=== PATIENT | female | born 1940 | race Caucasian/White ===

== ENCOUNTER → 2016-08-20 | Outpatient (CLI) | payer OTHER ==
--- NOTE | 2016-08-20 12:23 | MA ---
Screening Digital Mammogram With iCAD Analysis Clinical Indications: Routine screening. A sister was diagnosed with breast cancer in her 40s. Technique: Standard cephalocaudal projections are obtained. Digital breast tomosynthesis was performe d in the MLO projection with reconstruction at 1.0 mm slice thickness and composite MLO views reconst ructed. This examination is processed by the iCAD computer aided detection system. Comparison: August 2015, July 2014, May 2013, January 2012, December 2010, December 2009, November 2008, Ma y 2007. Breast density: Type B; Scattered fibroglandular densities. Findings: CAD was reviewed. No masses, suspicious calcifications or secondary signs of malignancy are seen. There has been no significant change in the appearance of either breast. Impression: Negative mammogram. BI-RADS 1. Recommendation: Routine mammographic screening in one year as long as physical examination is negativ murrayCount Includes [facility] will send a result letter to the patient. Negative mammography should not preclude additional workup of a clinically suspicious finding. The patient's information is entered into a reminder system with a target due date for her next mammo gram.
== END ==
LOC: FIMAGING 09:17
PROVIDERS: ATTEND Physician Assistant
DX: Z12.31 Encounter for screening mammogram for malignant neoplasm of breast (principal); Z80.3 Family history of malignant neoplasm of breast
CPT/HCPCS: G0202

== ENCOUNTER → 2016-08-20 | Outpatient (CLI) | payer OTHER ==
--- NOTE | 2016-08-20 09:22 | MR ---
MRI of the Lumbar Spine (Without Contrast) Indication: Radiculopathy. Technique: Sagittal and axial T1 and T2 , and sagittal STIR MR sequences of the lumbar spine without contrast. Axial imaging from T12-S1. Comparison: Lumbar spine radiographs dated February 09, 2008. Findings: L3 is retrolisthesed 4 mm on L4 and L4 is retrolisthesed 3 mm on L5. Lumbar spine has minim al dextrocurvature apex at L3. No bone marrow replacing lesion or compression fracture. Mild diskogen ic Modic changes are present at the L3-L4 and L4-L5 levels. The paraspinal soft tissues are normal. The aorta is normal caliber. The conus medullaris is at L1-L2. T12-L1: Widely patent central canal and neural foramina. Minimal facet hypertrophy. L1-L2: Normal disk. Widely patent central canal and neural foramina. Minimal facet hypertrophy. L2-L3: Disk desiccation and broad-based disk bulge combined with facet hypertrophy result in mild cici tral canal narrowing and minimal bilateral neural foraminal narrowing slightly worse left than right. The central canal measures 11 mm AP. L3-L4: Grade 1 retrolisthesis of L3 on L4 combined with a diffuse broad-based disk bulge, facet hyper trophy and ligamentum flavum thickening results in moderate central canal narrowing, moderate bilater al ventrolateral recess narrowing and [id number] bilateral neural foraminal stenosis, minimally worse left than right. The central canal measures 6 to 7 mm AP. L4-L5: A diffuse broad-based disk bulge combined with ligamentum flavum and facet hypertrophy results in mild to moderate central canal narrowing and ventrolateral recess stenosis worse right than left. Severe right neural foraminal stenosis compresses and minimally obscures the exiting right L4 nerve root. Mild to moderate left neural foraminal stenosis. The right L5 nerve root is minimally compresse d and deformed in the ventrolateral recess. The central canal measures 8 to 9 mm AP. L5-S1: Disk desiccation and minimal central subligamentous disk bulge result in minimal acquired cent ral canal narrowing. Facet hypertrophy and disk bulge result in mild bilateral neural foraminal steno sis. Impression: Multilevel degenerative disk and facet arthropathy with broad-based disk bulges at the L2 -L3, L3-L4, and L4-L5 levels resulting in the worst degree of central canal stenosis at L3-L4 and wor st degree of right neural foraminal stenosis at L4-L5 potentially affecting the exiting right L4 nerv e root in the neuroforamen and right L5 nerve root in the ventrolateral recess.
== END ==
LOC: FIMAGING 07:52
PROVIDERS: ATTEND Physician Assistant
DX: M51.36 Other intervertebral disc degeneration, lumbar region (principal); M46.96 Unspecified inflammatory spondylopathy, lumbar region; M48.06 Spinal stenosis, lumbar region

== ENCOUNTER → 2017-02-06 | Outpatient (CLI) | payer OTHER | LOC: FIMAGING 13:42 | PROVIDERS: ATTEND Internal Medicine ==

== ENCOUNTER → 2017-02-12 | Outpatient (CLI) | payer OTHER | LOC: FIMAGING 12:54 | PROVIDERS: ATTEND Orthopaedic Surgery | DX: M23.301 Other meniscus derangements, unspecified lateral meniscus, left knee (principal); M23.304 Other meniscus derangements, unspecified medial meniscus, left knee; M24.10 Other articular cartilage disorders, unspecified site; M23.42 Loose body in knee, left knee; M25.462 Effusion, left knee; M76.32 Iliotibial band syndrome, left leg ==

== ENCOUNTER → 2017-04-04 | Outpatient (CLI) | payer OTHER | LOC: FIMAGING 14:51 | PROVIDERS: ATTEND Physician Assistant | DX: M53.3 Sacrococcygeal disorders, not elsewhere classified (principal); M51.36 Other intervertebral disc degeneration, lumbar region ==

== ENCOUNTER → 2017-09-25 | Outpatient (CLI) | payer OTHER | LOC: FIMAGING 10:05 | PROVIDERS: ATTEND Physician Assistant | DX: Z12.31 Encounter for screening mammogram for malignant neoplasm of breast (principal); Z13.820 Encounter for screening for osteoporosis; Z80.3 Family history of malignant neoplasm of breast; Z78.0 Asymptomatic menopausal state ==

== ENCOUNTER → 2018-11-03 | Outpatient (CLI) | payer OTHER | LOC: FIMAGING 12:28 | PROVIDERS: ATTEND Physician Assistant | DX: Z12.31 Encounter for screening mammogram for malignant neoplasm of breast (principal); Z80.3 Family history of malignant neoplasm of breast ==